=== PATIENT | male | born 1980 | race American Indian/Alaskan Native ===

== ENCOUNTER 2018-06-08 09:11 | Outpatient (CLI) | payer OTHER ==
--- NOTE | 2018-06-08 12:48 | Ultrasound Report ---
Testicular sonogram: History: Testicular pain. Findings: Right testes is not visualized. Suspected calcified mass in the right testes region. Left testes measures 4.7 x 2.2 x 3.8 cm. Uniform echogenicity with normal color flow. No mass. Minimal fluid in the scrotal sac. Impression: Minimal hydrocele left testis. Right testis not visualized. Suspected calcified mass in the region. Further evaluation with CT scan may be recommended.
== END 2018-06-08 09:12 | disposition home or self-care (01) ==
LOC: SPVWC 09:11
PROVIDERS: ATTEND Family Medicine
DX: N43.3 Hydrocele, unspecified (principal)
CPT/HCPCS: 76870